=== PATIENT | female | born 1950 | race Caucasian/White ===

== ENCOUNTER 2018-09-17 19:41 | Emergency (ER) | payer MEDICARE, OTHER ==
[~2018-09-17] VITALS: Ht 160 cm; Wt 71.7 kg
--- NOTE | 2018-09-17 19:52 | ED Chest Pain ---
General Chief Complaint: Chest Pain Stated Complaint: CHEST PAINS, SOB; X OF AFIB Source: patient, RN notes reviewed Exam Limitations: no limitations History of Present Illness Date Seen by Provider: Sep 17, 2018 Time Seen by Provider: 19:52 Initial Comments Patient presents c/ c/o chest pain since approximately 19:00. States she has a PMH of PAF but never usually has pain like this. (+) SOA. No N/V. No diaphoresis. Timing/Duration: 1 hour Severity/Quality: moderate Location: substernal Radiation: no radiation Activities at Onset: rest ASA po [employer] ADVISORY SERVICE LIBRARIAN: No NTG SL READ[employer]' ADVISORY SERVICE LIBRARIAN: No Associated Symptoms: shortness of breath Allergies and Home Medications Allergies Coded Allergies: morphine (Verified Allergy, Unknown, 09/17/18) NSAIDS (Non-Steroidal Anti-Inflamma (Verified Adverse Reaction, Unknown, ) CAN'T TAKE BECAUSE OF KIDNEY PROBLEMS Patient Home Medication List Home Medication List Reviewed: Yes Review of Systems Review of Systems Constitutional: see HPI Respiratory: See HPI, Shortness of Air, SOA at Rest Cardiovascular: See HPI, Chest Pain All Other Systems Reviewed Negative Unless Noted: Yes Past Zbiavlv-Mypldp-Izjbkg Hx Patient Social History Recent Foreign Travel: No Contact w/Someone Who Travel: No Physical Exam Vital Signs Vital Signs - First Documented 09/17/18 19:48 Temp 98.2 Pulse 109 Resp 18 B/P (MAP) 155/77 (103) Pulse Ox 96 O2 Delivery Room Air Capillary Refill : Height, Weight, BMI Height: '" Weight: lbs. oz. kg; BMI Method: General Appearance: No Apparent Distress, WD/WN Respiratory: No Respiratory Distress Cardiovascular: Irregularly Irregular, Tachycardia Rectal: Deferred Neurologic/Psychiatric: Alert, Oriented x3, No Motor/Sensory Deficits, Normal Mood/Affect Skin: Warm/Dry Progress/Results/Core Measures Results/Orders Lab Results Laboratory Tests Test 09/17/18 20:03 09/17/18 20:05 Range/Units Prothrombin Time 25.8 H 12.2-14.7 SEC INR Comment 2.3 H 0.8-1.4 White Blood Count 10.2 4.3-11.0 10^3/uL Red Blood Count 6.02 H 4.35-5.85 10^6/uL Hemoglobin 16.6 H 11.5-16.0 G/DL Hematocrit 51 35-52 % Mean Corpuscular Volume 84 80-99 FL Mean Corpuscular Hemoglobin 28 25-34 PG Mean Corpuscular Hemoglobin Concent 33 32-36 G/DL Red Cell Distribution Width 13.6 10.0-14.5 % Platelet Count 191 130-400 10^3/uL Mean Platelet Volume 11.8 H 7.4-10.4 FL Neutrophils (%) (Auto) 63 42-75 % Lymphocytes (%) (Auto) 27 12-44 % Monocytes (%) (Auto) 7 0-12 % Eosinophils (%) (Auto) 2 0-10 % Basophils (%) (Auto) 1 0-10 % Neutrophils # (Auto) 6.4 1.8-7.8 X 10^3 Lymphocytes # (Auto) 2.7 1.0-4.0 X 10^3 Monocytes # (Auto) 0.7 0.0-1.0 X 10^3 Eosinophils # (Auto) 0.2 0.0-0.3 10^3/uL Basophils # (Auto) 0.1 0.0-0.1 10^3/uL Sodium Level 142 135-145 MMOL/L Potassium Level 3.0 L 3.6-5.0 MMOL/L Chloride Level 98 98-107 MMOL/L Carbon Dioxide Level 29 21-32 MMOL/L Anion Gap 15 H 5-14 MMOL/L Blood Urea Nitrogen 20 H 7-18 MG/DL Creatinine 0.96 0.60-1.30 MG/DL Estimat Glomerular Filtration Rate 58 BUN/Creatinine Ratio 21 Glucose Level 142 H 70-105 MG/DL Calcium Level 9.0 8.5-10.1 MG/DL Corrected Calcium 8.5-10.1 MG/DL Magnesium Level 2.1 1.8-2.4 MG/DL Total Bilirubin 0.3 0.1-1.0 MG/DL Aspartate Amino Transf (AST/SGOT) 37 H 5-34 U/L Alanine Aminotransferase (ALT/SGPT) 35 0-55 U/L Alkaline Phosphatase 118 40-136 U/L Troponin T 8 <=10 NG/L Pro-B-Type Natriuretic Peptide 196.1 H <75.0 PG/ML Total Protein 7.6 6.4-8.2 GM/DL Albumin 4.6 H 3.2-4.5 GM/DL Lipase 67 8-78 U/L My Orders Orders - WILBERTO,AMADO Ilan DO Cbc With Automated Diff (09/17/18 19:53) Magnesium (09/17/18 19:53) Chest 1 View Ap/Pa Only (09/17/18 19:53) Ekg Tracing (09/17/18 19:53) Comprehensive Metabolic Panel (09/17/18 19:53) Monitor-Rhythm Ecg Trace Only (09/17/18 19:53) Saline Lock/Iv-Start (09/17/18 19:53) Troponin T (09/17/18 19:53) Probnp Fs (09/17/18 19:53) Lipase (09/17/18 19:54) Diltiazem Injection (Cardizem Injection) (09/17/18 20:45) Potassium Chloride (Tablet) (K Dur Table (09/17/18 20:40) Protime With Inr (09/17/18 20:48) Ns (Ivpb) (Sodium C... W/Diltiazem Injec (09/17/18 21:15) Fentanyl Injection (Sublimaze Injection (09/17/18 21:21) Ekg Tracing (09/17/18 21:23) Medications Given in ED Current Medications Medications Dose Ordered Sig/Karina Route Start Time Stop Time Status Last Admin Dose Admin Diltiazem HCl 20 mg ONCE ONCE IVP 09/17/18 20:45 09/17/18 21:12 DC 09/17/18 20:49 20 MG Vital Signs/I&O 09/17/18 09/17/18 19:48 19:50 Temp 98.2 Pulse 109 Resp 18 B/P (MAP) 155/77 (103) Pulse Ox 96 O2 Delivery Room Air Room Air Progress Progress Note : Progress Note Did manage to slow her rate down and improve her discomfort. Unfortunately remains in A. fib. Will require transfer/admission. Departure Impression Primary Impression: Chest pain Additional Impressions: Atrial fibrillation and flutter Hypokalemia Disposition: XF SHT-TRM HOSP Condition: Stable Admissions Decision to Admit Reason: Admit from ER (General) Decision to Admit/Date: Sep 17, 2018 Time/Decision to Admit Time: 21:30 Transfer Time Spoke to Accepting Phy: 21:50 Transfer Progress Notes Patient's pharmacy sales representative is located @ [facility] and patient requests transfer there for further evaluation and care of her condition. Transfer Facility: [facility] Method of Transfer: EMS Departure-Patient Inst. Referrals: NO,LOCAL PHYSICIAN (PCP) Primary Care Physician AMADO LADD DO Sep 17, 2018 19:52
[2018-09-17 20:20] LABS: HEMATOCRIT 51 % (35-52); HEMOGLOBIN 16.6 G/DL (11.5-16.0); MEAN CORPUSCULAR HEMOGLOBIN 28 PG (25-34); MEAN CORPUSCULAR VOLUME 84 FL (80-99); WHITE BLOOD COUNT 10.2 10^3/uL (4.3-11.0)
[2018-09-17 20:21] LABS: BASOPHILS # (AUTO) 0.1 10^3/uL (0.0-0.1); BASOPHILS % (AUTO) 1 % (0-10); EOSINOPHILS # (AUTO) 0.2 10^3/uL (0.0-0.3); EOSINOPHILS % (AUTO) 2 % (0-10); LYMPHOCYTES # (AUTO) 2.7 X 10^3 (1.0-4.0); LYMPHOCYTES % (AUTO) 27 % (12-44); MEAN CORPUSCULAR HGB CONC 33 G/DL (32-36); MEAN PLATELET VOLUME 11.8 FL (7.4-10.4); MONOCYTES # (AUTO) 0.7 X 10^3 (0.0-1.0); MONOCYTES % (AUTO) 7 % (0-12); NEUTROPHILS # (AUTO) 6.4 X 10^3 (1.8-7.8); NEUTROPHILS % (AUTO) 63 % (42-75); PLATELET COUNT 191 10^3/uL (130-400); RED CELL DISTRIBUTION WIDTH 13.6 % (10.0-14.5)
--- NOTE | 2018-09-17 20:28 | Diagnostic Imaging Report ---
INDICATION: Chest pain and pressure A single view of the chest shows normal heart size and vascularity. The lungs are clear. There is no effusion or pneumothorax. IMPRESSION: Normal chest. Dictated by: Dictated on workstation # [id number]
[2018-09-17 20:37] LABS: BUN/CREATININE RATIO 21; CARBON DIOXIDE 29 MMOL/L (21-32); CHLORIDE 98 MMOL/L (98-107); CREATININE SERUM 0.96 MG/DL (0.60-1.30); GFR ESTIMATED 58; GLUCOSE 142 MG/DL (70-105); MAGNESIUM 2.1 MG/DL (1.8-2.4); SODIUM 142 MMOL/L (135-145)
[2018-09-17 20:38] LABS: ALANINE AMINOTRANSFERASE 35 U/L (0-55); ALBUMIN 4.6 GM/DL (3.2-4.5); ALKALINE PHOSPHATASE 118 U/L (40-136); BILIRUBIN,TOTAL 0.3 MG/DL (0.1-1.0); TOTAL PROTEIN 7.6 GM/DL (6.4-8.2)
[2018-09-17] MEDS ORDERED: KCL 20 MEQ TAB (K-DUR) PO STA (20:40)
[2018-09-17] MEDS ORDERED: DILTIAZEM 25 MG/5 ML INJ (CARDIZEM) VIAL IVP ONE (20:45)
[2018-09-17 21:06] LABS: INR 2.3 (0.8-1.4); PROTHROMBIN TIME PATIENT 25.8 SEC (12.2-14.7)
[2018-09-17] MEDS ORDERED: DILTIAZEM INJECTION 125 MG in NS (IVPB) 100 ML IV SCH (21:15)
[2018-09-17] MEDS ORDERED: fentaNYL INJECTION 100 MCG/2 ML AMP IVP STA (21:21)
[2018-09-17 22:35] VITALS: BP 125/59
== END 2018-09-17 22:35 | disposition short-term general hospital (02) ==
LOC: ER FS 19:43
DX: R07.81 Pleurodynia (principal); I48.0 Paroxysmal atrial fibrillation; I48.92 Unspecified atrial flutter; E87.6 Hypokalemia; Z88.5 Allergy status to narcotic agent; Z88.6 Allergy status to analgesic agent
CPT/HCPCS: 36415; 71045; 80053; 83690; 83735; 83880; 84484; 85025; 85610; 93005; 93041; 96374; 96375

== ENCOUNTER → 2020-08-29 | Outpatient (CLI) | payer MEDICARE ==
--- NOTE | 2020-08-29 11:42 | Diagnostic Imaging Report ---
EXAMINATION: Right wrist at 11:05 AM. INDICATION: Followup fracture. TECHNIQUE/COMPARISON: Three views were obtained. There are no prior studies available for comparison. Reportedly, the patient has a fracture of the distal radius. FINDINGS: There is no fracture, dislocation, or acute bony abnormality evident. In particular, there is no clear evidence for a fracture line involving the distal radius. 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 There is only mild degenerative change of the triscaphe joint. The soft tissues are unremarkable. IMPRESSION: 1. The reported fracture of the distal radius is difficult to appreciate on this exam. If previous studies are available, they would be helpful for comparison. 2. There is no acute bony abnormality noted otherwise. 3. 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 Dictated by: Dictated on workstation # [id number]
== END ==
LOC: RAD FS 11:02
PROVIDERS: ATTEND Nurse Practitioner
DX: S52.591A Other fractures of lower end of right radius, initial encounter for closed fracture (principal); M19.031 Primary osteoarthritis, right wrist
CPT/HCPCS: 73110

== ENCOUNTER → 2020-09-14 | Outpatient (CLI) | payer MEDICARE ==
--- NOTE | 2020-09-14 09:32 | Diagnostic Imaging Report ---
INDICATION: Pain. Three views were obtained. FINDINGS: There are marked degenerative changes at the base of the 1st metacarpal. There is no acute fracture or dislocation. Soft tissues are unremarkable. IMPRESSION: Marked degenerative changes at the base of 1st metacarpal, otherwise unremarkable. Dictated by: Dictated on workstation # [id number]
== END ==
LOC: RAD FS 08:49
PROVIDERS: ATTEND Nurse Practitioner
DX: S52.531A Colles' fracture of right radius, initial encounter for closed fracture (principal); M19.031 Primary osteoarthritis, right wrist
CPT/HCPCS: 73110

== ENCOUNTER 2021-01-06 21:39 | Emergency (ER) | payer MEDICARE ==
[~2021-01-06] VITALS: Ht 160 cm; Wt 78.1 kg
--- NOTE | 2021-01-06 21:54 | ED General ---
General Chief Complaint: Bite-Animal/Human/Insect Stated Complaint: ANIMAL BITE RIGHT HAND Source of Information: Patient Exam Limitations: No Limitations History of Present Illness Date Seen by Provider: Jan 06, 2021 Time Seen by Provider: 21:45 Initial Comments Patient is a 70-year-old right-handed female who presents with dog bite to her right hand. Patient has a 3 cm irregular laceration to the dorsum of her right hand. Bite occurred just prior to ED arrival. No other symptoms or complaints. Wound was extensively cleansed with Steri-Strips placed per her son who is a multiple punch press operator prior to ED arrival. The dog is a foster animal staying with the patient shots are up-to-date. No other symptoms or complaints Timing/Duration: 1/2 Hour Severity: Mild Modifying Factors: improves with Movement Associated Systoms: Denies Symptoms, Other Allergies and Home Medications Allergies Coded Allergies: morphine (Verified Allergy, Unknown, 09/17/18) NSAIDS (Non-Steroidal Anti-Inflamma (Verified Adverse Reaction, Unknown, 09/17/18) CAN'T TAKE BECAUSE OF KIDNEY PROBLEMS Patient Home Medication List Home Medication List Reviewed: Yes Review of Systems Review of Systems Constitutional: no symptoms reported Skin: see HPI Past Hxappio-Hxmxfo-Awjlab Hx Seasonal Allergies Seasonal Allergies: No Past Medical History Surgeries: Yes (Kidney surgery, shoulder surgery) Hysterectomy Respiratory: No Cardiac: Yes Atrial Fibrillation, Hypertension Neurological: No Genitourinary: Yes (vascular kidney) Gastrointestinal: No Musculoskeletal: No Endocrine: No HEENT: No Cancer: No Psychosocial: No Integumentary: No Blood Disorders: No Physical Exam Vital Signs Vital Signs - First Documented 01/06/21 21:58 Temp 35.9 Pulse 69 Resp 16 B/P (MAP) 159/78 (105) Pulse Ox 98 O2 Delivery Room Air Capillary Refill : Height, Weight, BMI Height: 5'3.00" Weight: 158lbs. oz. 71.438365uv; BMI Method:Stated General Appearance: No Apparent Distress Eyes: Bilateral Eye Normal Inspection, Bilateral Eye PERRL, Bilateral Eye EOMI HEENT: PERRL/EOMI Neck: Supple Respiratory: Lungs Clear, Normal Breath Sounds Extremity: Other (3 cm full-thickness chevron laceration dorsum right hand, wound is clean, bleeding controlled. Single puncture wound and palmar surface of hand. Steri-Strips in place) Focused Exam Sepsis Stage: Ruled Out Progress/Results/Core Measures Suspected Sepsis SIRS Temperature: Pulse: Respiratory Rate: Blood Pressure / Mean: Results/Orders My Orders Orders - LAUREN WALSH DO Amoxicillin/Clavulanate Tablet (Augmenti (01/06/21 22:00) Lidocaine 1% Inj 20 Ml (Xylocaine 1% Inj (01/06/21 22:00) Hand 3 View Right (01/06/21 21:56) Oxycodone/Apap 5/325mg Tablet (Percocet (01/06/21 22:15) Vital Signs/I&O 01/06/21 21:58 Temp 35.9 Pulse 69 Resp 16 B/P (MAP) 159/78 (105) Pulse Ox 98 O2 Delivery Room Air Capillary Refill : Departure Communication (Admissions) Right hand x-ray: No fracture Wound was cleansed prior to ED arrival with Steri-Strip placed per multiple punch press operator. Wound is cleaned and adequately approximated. I offered to remove Steri-Strips examine and reirrigate. Patient declined request stating she did not feel it was necessary did not want additional pain. Feel this is a reasonable request. Antibiotics and pain medication given. It was explained to patient that the wound is at high risk of infection and that she must monitor it and return immediately to the emergency department should she have signs of infection. She is instructed to follow-up with her PCP in 2 to 3 days for reevaluation. Patient verbalizes understanding agreement with discharge instructions prior to departure. Impression Primary Impression: Dog bite of right hand Disposition: 01 HOME, SELF-CARE Condition: Stable Departure-Patient Inst. Decision time for Depature: 22:18 Referrals: NO,LOCAL PHYSICIAN (PCP/Family) Primary Care Physician Patient Instructions: Animal and Human Bites Add. Discharge Instructions: Please keep wound clean and dry and monitor for signs of infection. Take ibuprofen for pain and complete full course of antibiotics. Take hydrocodone as needed for additional relief. Follow-up with your PCP for reevaluation in 2 to 3 days. Return to the ED if signs of infection. All discharge instructions reviewed with patient and/or family. Voiced understanding. Scripts Hydrocodone/Acetaminophen (Hydrocodone-Acetamin 5-325 mg) 1 Each Tablet 1 TAB PO Q4H PRN for PAIN-MODERATE (5-7), #10 TAB Prov: LAUREN WALSH DO 01/06/21 Amoxicillin/Potassium Clav (Augmentin 875-125 Tablet) 1 Each Tablet 1 EACH PO BID, #14 TAB 0 Refills Prov: LAUREN WALSH DO 01/06/21 LAUREN WALSH DO Jan 06, 2021 21:54
[2021-01-06 21:58] VITALS: BP 159/78
[2021-01-06] MEDS ORDERED: LIDOCAINE 1% INJ 20 ML 20 ML VIAL INJ ONE (22:00)
[2021-01-06] MEDS ORDERED: AUGMENTIN 875 MG TAB (AMOXICILLIN/CLAVULANATE) PO SCH (22:00)
[2021-01-06] MEDS ORDERED: oxyCODONE/APAP 5/325MG (PERCOCET 5) TABLET PO ONE (22:15)
[2021-01-06] MEDS ORDERED: AMOX-358 PO (22:21)
[2021-01-06] MEDS ORDERED: ACHD5005 PO (22:21)
--- NOTE | 2021-01-07 08:13 | Diagnostic Imaging Report ---
INDICATION: Dog bite to right hand. FINDINGS: There are no radiographic findings of an acute fracture, cortical disruption or joint dislocation. There is soft tissue swelling overlying the dorsum of the hand at the level of the metacarpophalangeal joints. There are severe background arthritic changes present throughout the hand. There is severe arthritis at the 1st carpometacarpal joint with more moderate arthritic changes throughout the metacarpal phalangeal and interphalangeal joints. There is no soft tissue gas evident or findings of a radiodense foreign body. IMPRESSION: Dorsal hand soft tissue swelling which may relate to a hematoma secondary to dog bite. There is no retained foreign body or definitive soft tissue gas. There is no acute fracture or malalignment. There are advanced background arthritic changes throughout the hand as described. Dictated by: Dictated on workstation # [id number]
== END 2021-01-06 22:25 | disposition home or self-care (01) ==
LOC: EDUNIT# 21:39 → ER FS 21:42
DX: S61.451A Open bite of right hand, initial encounter (principal); I10 Essential (primary) hypertension; Z88.5 Allergy status to narcotic agent; Z88.6 Allergy status to analgesic agent; W54.0XXA Bitten by dog, initial encounter
CPT/HCPCS: 73130

== ENCOUNTER 2022-07-12 07:50 | Emergency (ER) | payer MEDICARE ==
[~2022-07-12 07:50] MED LIST: ACHD5005 PO; AMOX-358 PO
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
[2022-07-12 08:16] LABS: BASOPHILS # (AUTO) 0.1 10^3/uL (0.0-0.1); BASOPHILS % (AUTO) 1 % (0-10); EOSINOPHILS # (AUTO) 0.3 10^3/uL (0.0-0.3); EOSINOPHILS % (AUTO) 4 % (0-10); HEMATOCRIT 48 % (35-52); HEMOGLOBIN 15.9 g/dL (11.5-16.0); LYMPHOCYTES # (AUTO) 2.3 10^3/uL (1.0-4.0); LYMPHOCYTES % (AUTO) 25 % (12-44); MEAN CORPUSCULAR HEMOGLOBIN 28 pg (25-34); MEAN CORPUSCULAR HGB CONC 33 g/dL (32-36); MEAN CORPUSCULAR VOLUME 83 fL (80-99); MEAN PLATELET VOLUME 11.3 fL (9.0-12.2); MONOCYTES # (AUTO) 0.5 10^3/uL (0.0-1.0); MONOCYTES % (AUTO) 6 % (0-12); NEUTROPHILS # (AUTO) 5.9 10^3/uL (1.8-7.8); NEUTROPHILS % (AUTO) 65 % (42-75); PLATELET COUNT 225 10^3/uL (130-400); WHITE BLOOD COUNT 9.1 10^3/uL (4.3-11.0)
--- NOTE | 2022-07-12 08:22 | Diagnostic Imaging Report ---
INDICATION: Chest tightness, atrial fibrillation. TECHNIQUE/COMPARISON: A frontal chest was obtained at 8:09 AM and compared with 09/17/2018. FINDINGS: The heart and mediastinal silhouette are normal in appearance. The lungs are clear. There is no pneumothorax or pleural fluid. IMPRESSION: Negative chest. Dictated by: Dictated on workstation # [id number]
[2022-07-12 08:35] LABS: INR 0.9 (0.8-1.4); PROTHROMBIN TIME PATIENT 12.4 SEC (12.2-14.7)
[2022-07-12 08:50] LABS: POTASSIUM 4.5 MMOL/L (3.6-5.0)
[2022-07-12 08:51] LABS: ALBUMIN 4.3 GM/DL (3.2-4.5); BILIRUBIN,TOTAL 0.2 MG/DL (0.1-1.0); CALCIUM 9.4 MG/DL (8.5-10.1); CREATININE SERUM 0.98 MG/DL (0.60-1.30)
[2022-07-12] MEDS ORDERED: APIXABAN 5 MG (ELIQUIS) TABLET PO STA (09:03)
[2022-07-12] MEDS ORDERED: HOLD METFORMIN - RECEIVED CONTRAST 20 ML VIAL IV SCH (09:15)
[2022-07-12] MEDS ORDERED: IOHEXOL 350 MG/ML 100 ML (OMNIPAQUE 350) VIAL IV ONE (09:15)
[2022-07-12] MEDS ORDERED: CATHETER FLUSH 10 ML SYR IV PRN (09:15)
[2022-07-12] MEDS ORDERED: NS 100 ML (IVPB) BAG IV ONE (09:15)
[2022-07-12] MEDS ORDERED: PANTOPRAZOLE 40 MG (PROTONIX) VIAL IV STA (09:15)
--- NOTE | 2022-07-12 09:45 | Diagnostic Imaging Report ---
INDICATION: Chest pain, atrial fibrillation. TECHNIQUE: Multiple contiguous axial images were obtained through the chest after uneventful bolus administration of intravenous contrast. 3D reconstructed CTA MIP acquisitions were also performed. Auto Exposure Controls were utilized during the CT exam to meet ALARA standards for radiation dose reduction. COMPARISON: There is no prior CTA for comparison. FINDINGS: The pulmonary parenchymal vessels are well-opacified with no CT evidence of pulmonary emboli. The thoracic aorta shows no evidence of aneurysm or dissection. The great vessel origins are patent and without stenosis. There are no enlarged mediastinal or hilar nodes. There are no enlarged axillary nodes. There is a loop recorder over the chest wall on the left side. There is no pleural or pericardial fluid. There is a moderate sized hiatal hernia. There is a small incidental right renal rounded lesion measuring about 1.5 cm which is indeterminate between a hyperdense cyst versus solid lesion. Consider sonographic followup. There is diffuse fatty infiltration of the liver. The lung windows demonstrate no pulmonary infiltrates or nodules. IMPRESSION: No CT evidence of pulmonary emboli or acute aortic pathology. No adenopathy or pleural fluid. Moderate sized hiatal hernia. There is an indeterminate 1.5 cm right renal lesion superiorly which may represent a hyperdense cyst or solid lesion. Consider ultrasound for followup. Dictated by: Dictated on workstation # [id number]
[2022-07-12 10:06] VITALS: BP 126/54
== END 2022-07-12 10:07 | disposition home or self-care (01) ==
LOC: EDUNIT# 07:50 → ER FS 07:51
DX: I48.0 Paroxysmal atrial fibrillation (principal); K44.9 Diaphragmatic hernia without obstruction or gangrene
CPT/HCPCS: 36415; 71045; 71275; 80053; 83735; 83880; 84484; 85025; 85610; 85730; 93005; 93041; Q9967